=== PATIENT | male | born 1980 | race Hispanic/Latino ===

== ENCOUNTER 2020-12-09 04:59 | Emergency (ER) | payer SELFPAY | END 2020-12-09 05:23 | LOC: ERS 04:59 | DX: Z02.89 Encounter for other administrative examinations (principal) | CPT/HCPCS: 99282 ==

== ENCOUNTER 2024-12-29 13:47 | Emergency (ER) | payer SELFPAY ==
[2024-12-29] MEDS ORDERED: Acetaminophen 500 MG TAB ONE (14:12)
== END 2024-12-29 16:25 | disposition home or self-care (01) ==
LOC: ERS 13:47
DX: M25.511 Pain in right shoulder (principal); M54.2 Cervicalgia; M25.551 Pain in right hip; V49.60XA Unspecified car occupant injured in collision with unspecified motor vehicles in traffic accident, initial encounter
CPT/HCPCS: 70450; 72125

== ENCOUNTER 2025-02-25 13:11 | Emergency (ER) | payer SELFPAY ==
[2025-02-25] MEDS ORDERED: Ketorolac Tromethamine 30 MG (1 mL) VIAL ONE (13:58)
== END 2025-02-25 13:59 | disposition home or self-care (01) ==
LOC: ERS 13:11
DX: M25.511 Pain in right shoulder (principal)
CPT/HCPCS: 96372; 99283; J1885